=== PATIENT | male | born 1940 | race Caucasian/White ===

== ENCOUNTER 2020-01-07 17:40 | Emergency (ER) | payer MEDICARE, BC ==
[2020-01-07] MEDS ORDERED: methylPREDNISolone Sodium Succinate 40 MG/1 ML SDV IM ONE (18:30)
[2020-01-07] MEDS ORDERED: diphenhydrAMINE 25 MG Cap PO ONE (18:30)
--- NOTE | 2020-01-07 18:36 | EDM.PDOC ---
ED HPI GENERAL MEDICAL PROBLEM - General Chief Complaint: Bite:Animal, Insect Stated Complaint: BEE STING ALLERGIC Time Seen by Provider: 01/07/20 18:18 Source of Information: Reports: Patient, RN Notes Reviewed History Limitations: Reports: No Limitations - History of Present Illness INITIAL COMMENTS - FREE TEXT/NARRATIVE: 79-year-old gentleman presents emergency department today with bee sting to his right hand, this happened about 3 hours prior he initially took some Benadryl which he feels has helped however he still having 10 out of 10 pain in his hand to the point where the pain is so intense he is going to pass out he feels dizzy 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 Denies any shortness of breath or chest pain no throat swelling no difficulty swallowing Right Hand Pain Score (Numeric/FACES): 10 - Related Data Allergies Allergy/AdvReac Type Severity Reaction Status Date / Time bee venom protein (honey bee) Allergy Anaphylactic Verified 01/07/20 19:15 Shock NSAIDS (Non-Steroidal Allergy Arrhythmias Verified 01/07/20 19:15 Anti-Inflamma Home Meds: Home Meds ALPRAZolam [Alprazolam] 1 tab PO ASDIRECTED 01/07/20 [History] Ezetimibe 10 mg PO ASDIRECTED 01/07/20 [History] Meloxicam 15 mg PO ASDIRECTED 01/07/20 [History] dilTIAZem HCL [Cardizem] 60 mg PO QID 01/07/20 [History] Past Medical History Cardiovascular History: Reports: Arrhythmia Musculoskeletal History: Reports: Arthritis Oncologic (Cancer) History: Reports: Prostate Social & Family History - Tobacco Use Smoking Status *Q: Never Smoker - Caffeine Use Caffeine Use: Reports: None - Recreational Drug Use Recreational Drug Use: No ED ROS GENERAL - Review of Systems Review Of Systems: See Below Constitutional: Reports: No Symptoms HEENT: Reports: No Symptoms Respiratory: Reports: No Symptoms Cardiovascular: Reports: No Symptoms GI/Abdominal: Reports: No Symptoms Skin: Reports: Rash, Erythema, Other (Edema in right hand) ED EXAM, ANIMAL BITE - Physical Exam Exam: See Below Text/Narrative:: Examination of the right hand I do appreciate some edema and erythema across the dorsal surface of the hand I do not appreciate any red streaking up the arm he has full range of motion of all digits and wrist radial pulses +2 Exam Limited By: No Limitations General Appearance: Alert, WD/WN, No Apparent Distress Respiratory/Chest: No Respiratory Distress, Lungs Clear, Normal Breath Sounds, No Accessory Muscle Use, Chest Non-Tender Cardiovascular: Regular Rate, Rhythm, No Murmur Course - Vital Signs Last Recorded V/S: Last Vital Signs Temp 98.0 F 01/07/20 18:09 Pulse 63 01/07/20 18:09 Resp 16 01/07/20 18:09 BP 167/84 H 01/07/20 18:09 Pulse Ox 94 L 01/07/20 18:09 - Orders/Labs/Meds Meds: Medications Discontinued Medications Generic Name Dose Route Start Last Admin Trade Name Freq PRN Reason Stop Dose Admin Diphenhydramine HCl 25 mg 01/07/20 18:30 01/07/20 18:57 Benadryl PO 01/07/20 18:31 25 mg ONETIME ONE Administration Methylprednisolone Sodium Succinate 40 mg 01/07/20 18:30 01/07/20 18:58 Solu-Medrol IM 01/07/20 18:31 40 mg ONETIME ONE Administration Departure - Departure Time of Disposition: 19:28 Disposition: Home, Self-Care 01 Condition: Good Clinical Impression: Bee sting reaction Qualifiers: Encounter type: initial encounter Injury intent: accidental or unintentional Qualified Code(s): T63.441A - Toxic effect of venom of bees, accidental ( unintentional), initial encounter - Discharge Information Instructions: Insect Bite, Adult, [id number] Referrals: Ritesh Kyle MD [Primary Care Provider] - Forms: ED Department Discharge Additional Instructions: Continue with Benadryl and Tylenol as needed for pain control follow-up primary care 3 to 5 days if not better call return to the emergency department worsening of symptoms Sepsis Event Note - Evaluation Sepsis Screening Result: No Definite Risk - Focused Exam Vital Signs: Vital Signs Temp Pulse Resp BP Pulse Ox 01/07/20 18:09 98.0 F 63 16 167/84 H 94 L 01/07/20 18:00 98.0 F 63 16 167/84 H 94 L Date Exam was Performed: 01/07/20 Time Exam was Performed: 19:27 - Assessment/Plan Plan: Assessment Acuity = acute Site and laterality = local allergic reaction Etiology = bee sting Manifestations = right hand swelling Location of injury = Home Lab values = none Plan Good improvement with combination Benadryl Solu-Medrol while in the emergency department, discharged home continue Benadryl as needed. This note was dictated using [employer] voice recognition software please call with any questions on syntax or grammar.
== END 2020-01-07 19:37 | disposition home or self-care (01) ==
LOC: JP.ED 17:40
DX: T63.441A Toxic effect of venom of bees, accidental (unintentional), initial encounter (principal); M19.90 Unspecified osteoarthritis, unspecified site; Z79.899 Other long term (current) drug therapy; Z91.030 Bee allergy status; Z88.8 Allergy status to other drugs, medicaments and biological substances
CPT/HCPCS: 96372; 99282; A9270; J2920